=== PATIENT | male | born 1945 | race Caucasian/White ===

== ENCOUNTER 2017-01-01 10:40 | Outpatient (CLI) | payer MEDICARE, OTHER | END 2017-01-01 10:41 | DX: I50.9 Heart failure, unspecified (principal); I10 Essential (primary) hypertension; R60.0 Localized edema ==

== ENCOUNTER 2018-02-20 07:36 | Outpatient (CLI) | payer MEDICARE, OTHER ==
[2018-02-20 13:23] LABS: BASOPHILS % (AUTO) 0.9 %; EOSINOPHILS # (AUTO) 0.4 10^3/uL (0.0-0.7); EOSINOPHILS % (AUTO) 8.3 %; LYMPHOCYTES # (AUTO) 1.1 10^3/uL (1.5-3.5); LYMPHOCYTES % (AUTO) 21.9 %; MEAN CORPUSCULAR HEMOGLOBIN 29.4 pg (27.0-31.0); MEAN CORPUSCULAR HGB CONC 33.7 g/dL (32.0-36.0); MEAN CORPUSCULAR VOLUME 87.3 fL (80.0-94.0); MEAN PLATELET VOLUME 8.2 fL (7.4-11.4); MONOCYTES # (AUTO) 0.5 10^3/uL (0.0-1.0); MONOCYTES % (AUTO) 9.7 %; NEUTROPHILS # (AUTO) 2.9 10^3/uL (1.5-6.6); NEUTROPHILS % (AUTO) 59.2 %; PLT - PLATELET COUNT 199 10^3/uL (130-450); RED BLOOD COUNT 4.41 10^6/uL (4.70-6.10); RED CELL DISTRIBUTION WIDTH 13.9 % (12.0-15.0)
[2018-02-20 13:32] LABS: ALBUMIN/GLOBULIN RATIO 1.3 (1.0-2.2); ALKALINE PHOSPHATASE 58 IU/L (42-121); ALT ALANINE AMINOTRANSFERASE 20 IU/L (10-60); AST ASPARTATE AMINOTRANSFERASE 21 IU/L (10-42); BILIRUBIN,TOTAL 0.6 mg/dL (0.2-1.0); BUN - BLOOD UREA NITROGEN 22 mg/dL (6-20); CALCIUM 8.7 mg/dL (8.5-10.3); CARBON DIOXIDE - CO2 26 mmol/L (21-32); CHLORIDE 101 mmol/L (101-111); CHOL/HDL RATIO 5.5 (<5.0); CHOLESTEROL 226 mg/dL; CREATININE 1.2 mg/dL (0.6-1.2); GFR - MDRD 59 (>89); GLUCOSE 98 mg/dL (70-100); HDL CHOLESTEROL 41 mg/dL; LDL CHOLESTEROL,CALCULATED 154 mg/dL; LDL/HDL RATIO 3.8 (<3.6); SODIUM 135 mmol/L (135-145); VLDL CHOLESTEROL 31 mg/dL
== END 2018-02-20 07:37 | disposition home or self-care (01) ==
LOC: LAB.WCP 07:36
PROVIDERS: ATTEND Family Medicine
DX: E78.5 Hyperlipidemia, unspecified (principal); G47.30 Sleep apnea, unspecified; I10 Essential (primary) hypertension; C61 Malignant neoplasm of prostate
CPT/HCPCS: 36415; 80053; 80061; 83721; 84153; 84443; 85025

== ENCOUNTER 2019-02-15 14:08 | Outpatient (CLI) | payer MEDICARE, OTHER ==
--- NOTE | 2019-02-15 15:25 | XRAY Report ---
Reason: THUMB PAIN Procedure Date: 02/15/2019 Accession Number: [id number] / [id number] Procedure: XR - Hand 3 View LT CPT Code: FULL RESULT: EXAM: LEFT HAND RADIOGRAPHY EXAM DATE: 02/15/2019 02:22 PM. CLINICAL HISTORY: Thumb pain. COMPARISON: None. TECHNIQUE: 3 views. FINDINGS: Bones: Normal. No fractures or bone lesions. Joints: There is subluxation of the first metacarpophalangeal joint, approximately 3 mm of volar displacement of the distal thumb. Soft Tissues: Normal. No soft tissue swelling. IMPRESSION: Subluxation of the thumb as described. RADIA
== END 2019-02-15 14:09 | disposition home or self-care (01) ==
LOC: DI 14:08
PROVIDERS: ATTEND Internal Medicine
DX: S63.112A Subluxation of metacarpophalangeal joint of left thumb, initial encounter (principal)

== ENCOUNTER 2019-07-21 08:51 | Outpatient (CLI) | payer MEDICARE, OTHER ==
[2019-07-21 12:34] LABS: BASOPHILS % (AUTO) 0.9 %; EOSINOPHILS # (AUTO) 0.3 10^3/uL (0.0-0.7); EOSINOPHILS % (AUTO) 6.4 %; HGB - HEMOGLOBIN 14.2 g/dL (14.0-18.0); LYMPHOCYTES # (AUTO) 1.2 10^3/uL (1.5-3.5); LYMPHOCYTES % (AUTO) 28.7 %; MEAN CORPUSCULAR HEMOGLOBIN 30.9 pg (27.0-31.0); MEAN CORPUSCULAR VOLUME 91.1 fL (80.0-94.0); MEAN PLATELET VOLUME 10.3 fL (7.4-11.4); MONOCYTES # (AUTO) 0.5 10^3/uL (0.0-1.0); MONOCYTES % (AUTO) 11.6 %; NEUTROPHILS # (AUTO) 2.2 10^3/uL (1.5-6.6); NEUTROPHILS % (AUTO) 51.9 %; PLT - PLATELET COUNT 208 10^3/uL (130-450); RED BLOOD COUNT 4.59 10^6/uL (4.70-6.10); RED CELL DISTRIBUTION WIDTH 12.8 % (12.0-15.0); WHITE BLOOD COUNT 4.2 x10^3/uL (4.8-10.8)
[2019-07-21 12:36] LABS: BILIRUBIN,URINE NEGATIVE (NEGATIVE); GLUCOSE, URINE (UA) NEGATIVE (NEGATIVE); KETONES,URINE (UA) NEGATIVE (NEGATIVE); LEUKOCYTE ESTERASE, URINE NEGATIVE (NEGATIVE); NITRITE,URINE NEGATIVE (NEGATIVE); OCCULT BLOOD,URINE NEGATIVE (NEGATIVE); PH,URINE 6.5 PH (5.0-7.5); PROTEIN,URINE NEGATIVE (NEGATIVE); UROBILINOGEN,URINE 0.2 (NORMAL) E.U./dL (NORMAL)
[2019-07-21 12:44] LABS: CLARITY,URINE CLEAR (CLEAR)
[2019-07-21 12:57] LABS: HB2 TOTAL 14.8 g/dL; HEMOGLOBIN A1C 0.6 g/dL; HEMOGLOBIN A1C % 5.9 % (4.6-6.2)
[2019-07-21 13:02] LABS: ALBUMIN 3.9 g/dL (3.2-5.5); ALBUMIN/GLOBULIN RATIO 1.2 (1.0-2.2); ALKALINE PHOSPHATASE 55 IU/L (42-121); ALT ALANINE AMINOTRANSFERASE 19 IU/L (10-60); AST ASPARTATE AMINOTRANSFERASE 18 IU/L (10-42); BILIRUBIN,TOTAL 0.9 mg/dL (0.2-1.0); BUN - BLOOD UREA NITROGEN 22 mg/dL (6-20); CARBON DIOXIDE - CO2 28 mmol/L (21-32); CHLORIDE 104 mmol/L (101-111); CHOL/HDL RATIO 5.8 (<5.0); CHOLESTEROL 255 mg/dL; CREATININE 1.4 mg/dL (0.6-1.2); GFR - MDRD 49 (>89); GLUCOSE 101 mg/dL (70-100); HDL CHOLESTEROL 44 mg/dL; LDL CHOLESTEROL,CALCULATED 180 mg/dL; LDL/HDL RATIO 4.1 (<3.6); SODIUM 138 mmol/L (135-145); TOTAL PROTEIN 7.1 g/dL (6.7-8.2); VLDL CHOLESTEROL 31 mg/dL
[2019-07-21 13:06] LABS: THYROID STIMULATING HORMONE 2.22 uIU/mL (0.34-5.60)
== END 2019-07-21 23:59 | disposition home or self-care (01) ==
LOC: LAB.N 08:51
PROVIDERS: ATTEND Internal Medicine
DX: C61 Malignant neoplasm of prostate (principal); I10 Essential (primary) hypertension; R41.3 Other amnesia; Z86.010 Personal history of colon polyps; Z79.899 Other long term (current) drug therapy; Z13.6 Encounter for screening for cardiovascular disorders; J30.2 Other seasonal allergic rhinitis; G47.33 Obstructive sleep apnea (adult) (pediatric); G64 Other disorders of peripheral nervous system
CPT/HCPCS: 36415; 80053; 80061; 81001; 81003; 81599; 82607; 83036; 83721; 84153; 84443; 85025; 87086

== ENCOUNTER 2019-07-24 10:43 | Outpatient (CLI) | payer MEDICARE, OTHER ==
--- NOTE | 2019-07-25 04:52 | CT Report ---
Reason: MEMORY LOSS Procedure Date: 07/24/2019 Accession Number: [id number] / [id number] Procedure: CT - HEAD WO CPT Code: FULL RESULT: EXAM: CT HEAD EXAM DATE: 07/24/2019 10:55 AM. CLINICAL HISTORY: Memory loss. COMPARISON: None. TECHNIQUE: Multiaxial CT images were obtained from the foramen magnum to the vertex. Reformats: Sagittal and coronal. IV contrast: None. In accordance with CT protocol optimization, one or more of the following dose reduction techniques were utilized for this exam: automated exposure control, adjustment of mA and/or KV based on patient size, or use of iterative reconstructive technique. FINDINGS: Parenchyma: No intraparenchymal hemorrhage. No evidence of mass, midline shift, or CT findings of acute infarction. Hernandes-white differentiation is distinct. Extraaxial Spaces: Normal for age. No subdural or epidural collections identified. Ventricles: The ventricles and cortical sulci are moderately enlarged, consistent with age-related tissue loss. Sinuses and orbits: Postsurgical changes from cataract extractions are noted in the globes. Trace mucosal thickening is noted in the maxillary sinuses. The mastoid sinuses are not opacified. Bones: No evidence of fracture or calvarial defect. Other: Mild intracranial atherosclerosis is present. IMPRESSION: Generalized age-related cortical atrophic changes without evidence of acute intracranial abnormality. RADIA
== END 2019-07-24 10:44 | disposition home or self-care (01) ==
LOC: DI 10:43
PROVIDERS: ATTEND Internal Medicine
DX: R41.3 Other amnesia (principal)
CPT/HCPCS: 70450

== ENCOUNTER 2020-03-03 20:52 | Emergency (ER) | payer MEDICARE, OTHER ==
[2020-03-03] MEDS ORDERED: HYDROcod/ACET 5/325 Prepack 4 PO STA (21:32)
--- NOTE | 2020-03-03 21:44 | ED Physician Documentation ---
PD HPI LOWER EXT INJURY - Stated complaint Stated Complaint: LT KNEE INJ - Chief complaint Chief Complaint: Trauma Ext - History obtained from History obtained from: Patient (He was getting on his riding mower and twisted his right knee and has moderate to severe pain there. He is able to walk with a cane which is not his baseline.) Review of Systems Constitutional: reports: Reviewed and negative Cardiac: reports: Reviewed and negative Respiratory: reports: Reviewed and negative PD PAST MEDICAL HISTORY - Past Surgical History Past Surgical History: Yes - Present Medications Home Medications: Ambulatory Orders Medication Instructions Recorded Confirmed Lisinopril 20 mg PO 05/12/13 05/12/13 Hydrocodone/Acetaminophen 1 - 2 each PO Q6H PRN #14 tablet 03/03/20 [Hydrocodon-Acetaminophen 5-325] - Allergies Allergies/Adverse Reactions: Allergies Allergy/AdvReac Type Severity Reaction Status Date / Time No Known Drug Allergies Allergy Verified 03/03/20 21:00 - Social History Does the pt smoke?: No Smoking Status: Never smoker Does the pt drink ETOH?: No Does the pt have substance abuse?: No - Immunizations Immunizations are current?: Yes - POLST Patient has POLST: No PD ED PE NORMAL - Vitals Vital signs reviewed: Yes - General General: Alert and oriented X 3, No acute distress - Extremities Extremities: Other (Tender over the lateral joint line with a small effusion. No ligamentous laxity. Positive grind testing.) - Neuro Neuro: Alert and oriented X 3, Normal speech Results - Vitals Vitals: Vital Signs - 24 hr 03/03/20 20:57 Temperature 36.4 C L Heart Rate 70 Respiratory 16 Rate Blood Pressure 136/62 H O2 Saturation 97 Oxygen O2 Source Room air - Rads (name of study) R knee XR Radiology: EMP read contemporaneously (Normal ) Departure - Departure Disposition: 01 Home, Self Care Clinical Impression: Internal derangement of right knee Condition: Good Record reviewed to determine appropriate education?: Yes Instructions: ED Meniscal Injury Knee Poss Prescriptions: Hydrocodone/Acetaminophen [Hydrocodon-Acetaminophen 5-325] 1 - 2 each PO Q6H PRN #14 tablet PRN Reason: pain Comments: As discussed, your examination is most consistent with a skull injury. The x- rays are normal. You can walk and weight-bear weight as tolerated but you should wear the splint for the most part when you are up and around. Return if worsen, follow-up with the orthopedic surgeon for reevaluation and further planning in the next week or so. Do not drink or drive while taking prescription pain medication. You do not need to wear the splint while in bed or showering.
--- NOTE | 2020-03-03 21:52 | XRAY Report ---
Reason: twisted R knee, c/o pain. Procedure Date: 03/03/2020 Accession Number: [id number] / [id number] Procedure: XR - Knee 3 View RT CPT Code: Final Report FULL RESULT: EXAM: RIGHT KNEE RADIOGRAPHY EXAM DATE: 03/03/2020 09:21 PM. CLINICAL HISTORY: Twisted R knee, c/o pain. COMPARISON: None. TECHNIQUE: 3 views. FINDINGS: Bones: Normal. No fractures or bone lesions. Joints: Normal. No effusion. No subluxations. Soft Tissues: Normal. No soft tissue swelling. IMPRESSION: Normal right knee radiography. RADIA
[2020-03-03 22:07] VITALS: BP 142/66
== END 2020-03-03 22:10 | disposition home or self-care (01) ==
LOC: ED 20:52
DX: S89.91XA Unspecified injury of right lower leg, initial encounter (principal); X50.1XXA Overexertion from prolonged static or awkward postures, initial encounter; Y93.89 Activity, other specified
CPT/HCPCS: 99283

== ENCOUNTER → 2020-08-16 | Outpatient (CLI) | payer MEDICARE, OTHER ==
[2020-08-16 18:02] LABS: BASOPHILS % (AUTO) 0.6 %; EOSINOPHILS # (AUTO) 0.5 10^3/uL (0.0-0.7); EOSINOPHILS % (AUTO) 10.4 %; HGB - HEMOGLOBIN 13.1 g/dL (14.0-18.0); LYMPHOCYTES # (AUTO) 1.4 10^3/uL (1.5-3.5); LYMPHOCYTES % (AUTO) 30.5 %; MEAN CORPUSCULAR HEMOGLOBIN 30.4 pg (27.0-31.0); MEAN CORPUSCULAR HGB CONC 32.5 g/dL (32.0-36.0); MEAN CORPUSCULAR VOLUME 93.5 fL (80.0-94.0); MEAN PLATELET VOLUME 10.2 fL (7.4-11.4); MONOCYTES # (AUTO) 0.4 10^3/uL (0.0-1.0); MONOCYTES % (AUTO) 9.3 %; NEUTROPHILS # (AUTO) 2.3 10^3/uL (1.5-6.6); NEUTROPHILS % (AUTO) 48.8 %; PLT - PLATELET COUNT 234 10^3/uL (130-450); RED BLOOD COUNT 4.31 10^6/uL (4.70-6.10); RED CELL DISTRIBUTION WIDTH 12.9 % (12.0-15.0); WHITE BLOOD COUNT 4.6 x10^3/uL (4.8-10.8)
[2020-08-16 18:13] LABS: PARTIAL THROMBOPLASTIN TIME 27.1 secs (24.9-33.3)
[2020-08-16 18:22] LABS: CALCIUM 9.7 mg/dL (8.5-10.3); CREATININE 1.5 mg/dL (0.6-1.2)
[2020-08-16 18:25] LABS: INR 1.1 (0.8-1.2); PT - PROTHROMBIN TIME 12.4 secs (9.9-12.6)
== END ==
LOC: LAB.WCP 08:00
PROVIDERS: ATTEND Internal Medicine
DX: Z01.818 Encounter for other preprocedural examination (principal); N18.9 Chronic kidney disease, unspecified; Z79.899 Other long term (current) drug therapy; I12.9 Hypertensive chronic kidney disease with stage 1 through stage 4 chronic kidney disease, or unspecified chronic kidney disease
CPT/HCPCS: 36415; 80048; 85025; 85610; 85730

== ENCOUNTER 2021-05-18 08:52 | Outpatient (CLI) | payer MEDICARE, OTHER ==
[2021-05-18 11:51] LABS: BASOPHILS # (AUTO) 0.1 10^3/uL (0.0-0.1); BASOPHILS % (AUTO) 1.2 %; EOSINOPHILS # (AUTO) 0.3 10^3/uL (0.0-0.7); EOSINOPHILS % (AUTO) 5.8 %; HCT - HEMATOCRIT 40.1 % (42.0-52.0); HGB - HEMOGLOBIN 12.9 g/dL (14.0-18.0); LYMPHOCYTES % (AUTO) 22.8 %; MEAN CORPUSCULAR HEMOGLOBIN 30.3 pg (27.0-31.0); MEAN CORPUSCULAR HGB CONC 32.2 g/dL (32.0-36.0); MEAN CORPUSCULAR VOLUME 94.1 fL (80.0-94.0); MEAN PLATELET VOLUME 10.5 fL (7.4-11.4); MONOCYTES # (AUTO) 0.5 10^3/uL (0.0-1.0); MONOCYTES % (AUTO) 11.4 %; NEUTROPHILS # (AUTO) 2.5 10^3/uL (1.5-6.6); NEUTROPHILS % (AUTO) 58.6 %; PLT - PLATELET COUNT 201 10^3/uL (130-450); RED BLOOD COUNT 4.26 10^6/uL (4.70-6.10); RED CELL DISTRIBUTION WIDTH 13.5 % (12.0-15.0); WHITE BLOOD COUNT 4.3 x10^3/uL (4.8-10.8)
[2021-05-18 11:58] LABS: ALBUMIN/GLOBULIN RATIO 1.4 (1.0-2.2); ALKALINE PHOSPHATASE 68 IU/L (42-121); ALT ALANINE AMINOTRANSFERASE 17 IU/L (10-60); AST ASPARTATE AMINOTRANSFERASE 17 IU/L (10-42); BILIRUBIN,TOTAL 0.8 mg/dL (0.2-1.0); BUN - BLOOD UREA NITROGEN 24 mg/dL (6-20); CALCIUM 9.3 mg/dL (8.5-10.3); CARBON DIOXIDE - CO2 27 mmol/L (21-32); CHLORIDE 104 mmol/L (101-111); CHOL/HDL RATIO 4.8 (<5.0); CHOLESTEROL 232 mg/dL; CREATININE 1.1 mg/dL (0.6-1.2); GFR - MDRD 65 (>89); GLUCOSE 99 mg/dL (70-100); HDL CHOLESTEROL 48 mg/dL; LDL CHOLESTEROL,CALCULATED 162 mg/dL; LDL/HDL RATIO 3.4 (<3.6); POTASSIUM 3.9 mmol/L (3.5-5.0); SODIUM 141 mmol/L (135-145); TOTAL PROTEIN 6.9 g/dL (6.7-8.2); TRIGLYCERIDES 111 mg/dL; VLDL CHOLESTEROL 22 mg/dL
[2021-05-18 12:09] LABS: THYROID STIMULATING HORMONE 2.56 uIU/mL (0.34-5.60)
[2021-05-18 12:28] LABS: ESTIMATED AVERAGE GLUCOSE 120 mg/dL (70-100); HEMOGLOBIN A1c% 5.8 % (4.27-6.07)
== END 2021-05-18 08:53 | disposition home or self-care (01) ==
LOC: LAB.N 08:52
PROVIDERS: ATTEND Internal Medicine
DX: R73.01 Impaired fasting glucose (principal); Z13.6 Encounter for screening for cardiovascular disorders; Z79.899 Other long term (current) drug therapy; J30.2 Other seasonal allergic rhinitis; G47.33 Obstructive sleep apnea (adult) (pediatric); I12.9 Hypertensive chronic kidney disease with stage 1 through stage 4 chronic kidney disease, or unspecified chronic kidney disease; K62.5 Hemorrhage of anus and rectum; N18.9 Chronic kidney disease, unspecified; G64 Other disorders of peripheral nervous system; D64.9 Anemia, unspecified; C61 Malignant neoplasm of prostate
CPT/HCPCS: 36415; 80053; 80061; 82607; 83036; 83721; 84153; 84443; 85025

== ENCOUNTER 2021-08-18 19:38 | Emergency (ER) | payer MEDICARE, OTHER ==
[2021-08-18 19:55] LABS: BILIRUBIN,URINE NEGATIVE (NEGATIVE); GLUCOSE, URINE (UA) NEGATIVE (NEGATIVE); KETONES,URINE (UA) NEGATIVE (NEGATIVE); LEUKOCYTE ESTERASE, URINE LARGE (NEGATIVE); NITRITE,URINE POSITIVE (NEGATIVE); OCCULT BLOOD,URINE LARGE (NEGATIVE); PH,URINE 5.5 PH (5.0-7.5); PROTEIN,URINE 100 mg/dL (NEGATIVE); UROBILINOGEN,URINE 0.2 (NORMAL) E.U./dL (NORMAL)
[2021-08-18 19:59] LABS: CLARITY,URINE CLOUDY (CLEAR)
[2021-08-18 19:59] LABS: BASOPHILS % (AUTO) 0.4 %; EOSINOPHILS # (AUTO) 0.3 10^3/uL (0.0-0.7); EOSINOPHILS % (AUTO) 3.2 %; HCT - HEMATOCRIT 40.6 % (42.0-52.0); HGB - HEMOGLOBIN 13.7 g/dL (14.0-18.0); LYMPHOCYTES # (AUTO) 1.3 10^3/uL (1.5-3.5); LYMPHOCYTES % (AUTO) 14.1 %; MEAN CORPUSCULAR HEMOGLOBIN 30.8 pg (27.0-31.0); MEAN CORPUSCULAR HGB CONC 33.7 g/dL (32.0-36.0); MEAN CORPUSCULAR VOLUME 91.2 fL (80.0-94.0); MEAN PLATELET VOLUME 9.6 fL (7.4-11.4); MONOCYTES # (AUTO) 0.9 10^3/uL (0.0-1.0); MONOCYTES % (AUTO) 9.8 %; NEUTROPHILS # (AUTO) 6.8 10^3/uL (1.5-6.6); NEUTROPHILS % (AUTO) 72.2 %; PLT - PLATELET COUNT 212 10^3/uL (130-450); RED BLOOD COUNT 4.45 10^6/uL (4.70-6.10); RED CELL DISTRIBUTION WIDTH 12.9 % (12.0-15.0); WHITE BLOOD COUNT 9.4 x10^3/uL (4.8-10.8)
[2021-08-18 20:04] LABS: BACTERIA,URINE Moderate /HPF (None Seen); SQUAMOUS EPITHELIAL CELL,UR RARE Squamous (<= Few); WBC,URINE >25 /HPF (0-3)
[2021-08-18 20:08] LABS: CALCIUM 9.2 mg/dL (8.5-10.3); CREATININE 1.3 mg/dL (0.6-1.2); POTASSIUM 3.9 mmol/L (3.5-5.0)
[2021-08-18] MEDS ORDERED: PHENAZOPYRIDINE 100 MG TABLET PO STA (20:38)
[2021-08-18] MEDS ORDERED: CEFPODOXIME PROXETIL 100 MG TABLET PO STA ×2 (20:38→20:40)
--- NOTE | 2021-08-18 20:38 | ED Physician Documentation ---
History of Present Illness - Stated complaint Stated Complaint: MALE - Chief complaint Chief Complaint: UTI - History obtained from History obtained from: Patient - Additonal information Additional information: 76-year-old man presents with dysuria and increased urinary urgency since yesterday. Denies back pain, fever, abdominal pain. no prior hx uti Review of Systems Ten Systems: 10 systems reviewed and negative Constitutional: denies: Fever, Chills GI: denies: Abdominal Pain, Nausea : reports: Dysuria, Frequency Musculoskeletal: denies: Back pain PD PAST MEDICAL HISTORY - Past Surgical History Past Surgical History: Yes - Present Medications Home Medications: Ambulatory Orders Medication Instructions Recorded Confirmed Cefpodoxime Proxetil [Vantin] 200 mg PO Q12H #28 tablet 08/18/21 Cholecalciferol [Vitamin D3] 1 cap PO DAILY 08/18/21 08/18/21 Cyanocobalamin (Vitamin B-12) 1 tab PO DAILY 08/18/21 08/18/21 [Vitamin B12] Gabapentin [Neurontin] 1,800 mg PO DAILY 08/18/21 08/18/21 Latanoprost 0.005% Ophth Drops 1 drops EACHEYE DAILY 08/18/21 08/18/21 [Xalatan Ophth Drops] Lisinopril [Zestril] 10 mg PO DAILY 08/18/21 08/18/21 Timolol 0.5% Ophth Drops [Timoptic 1 drops EACHEYE DAILY 08/18/21 08/18/21 0.5% Ophth Drops] - Allergies Allergies/Adverse Reactions: Allergies Allergy/AdvReac Type Severity Reaction Status Date / Time No Known Drug Allergies Allergy Verified 08/18/21 19:40 - Social History Does the pt smoke?: No Smoking Status: Never smoker Does the pt drink ETOH?: No Does the pt have substance abuse?: No - Immunizations Immunizations are current?: Yes - POLST Patient has POLST: No PD ED PE NORMAL - Vitals Vital signs reviewed: Yes - General General: Alert and oriented X 3, No acute distress, Well developed/nourished - HEENT HEENT: Atraumatic, PERRL, EOMI - Neck Neck: Supple, no meningeal sign - Cardiac Cardiac: RRR - Respiratory Respiratory: No respiratory distress, Clear bilaterally - Abdomen Abdomen: Non tender, Non distended - Back Back: No CVA TTP - Derm Derm: Normal color, Warm and dry - Extremities Extremities: No deformity - Neuro Neuro: Alert and oriented X 3 - Psych Psych: Normal mood, Normal affect Results - Vitals Vitals: Oxygen O2 Source Room air - Labs Labs: Microbiology 08/18/21 19:50 Urine Culture - Preliminary Urine,Clean Catch Escherichia Coli Laboratory Tests 08/18/21 08/18/21 08/18/21 19:50 19:54 19:54 WBC 9.4 RBC 4.45 L Hgb 13.7 L Hct 40.6 L MCV 91.2 MCH 30.8 MCHC 33.7 RDW 12.9 Plt Count 212 MPV 9.6 Neut # (Auto) 6.8 H Lymph # (Auto) 1.3 L Swain # (Auto) 0.9 Eos # (Auto) 0.3 Baso # (Auto) 0.0 Absolute Nucleated RBC 0.00 Nucleated RBC % 0.0 Sodium 139 Potassium 3.9 Chloride 104 Carbon Dioxide 24 Anion Gap 11.0 BUN 18 Creatinine 1.3 H Estimated GFR (MDRD) 54 L Glucose 125 H Calcium 9.2 Urine Color YELLOW Urine Clarity CLOUDY Urine pH 5.5 Ur Specific [place] 1.020 Urine Protein 100 H Urine Glucose (UA) NEGATIVE Urine Ketones NEGATIVE Urine Occult Blood LARGE H Urine Nitrite POSITIVE H Urine Bilirubin NEGATIVE Urine Urobilinogen 0.2 (NORMAL) Ur Leukocyte Esterase LARGE H Urine RBC 11-25 H Urine WBC >25 H Ur Squamous Epith Cells RARE Squamous Urine Bacteria Moderate H Ur Microscopic Review INDICATED Urine Culture Comments INDICATED PD MEDICAL DECISION MAKING - ED course ED course: 76yM p/w uti without evidence of stones on CT. advised him to fu with pmd regarding pulmonary nodules and need for chest CT. return precautions given. patient will .fu urology. Departure - Departure Disposition: Home, Self Care Clinical Impression: UTI (urinary tract infection) Condition: Good Instructions: ED UTI Cystitis Male Follow-Up: Penelope Mcpherson MD [Physician No Access] - Prescriptions: Cefpodoxime Proxetil [Vantin] 200 mg PO Q12H #28 tablet Comments: You are seen in the emergency department for urinary tract infection. You do not have any evidence of kidney stones on your CT. You do have a couple of nodules in the right base of your lung that should be followed up by your primary doctor. You will need a follow-up outpatient chest CT as ordered by your doctor. Please take your antibiotics as prescribed and follow-up with urology. Return to the emergency department if you have any fevers, new or worsening symptoms or other concerns. Discharge Date/Time: 08/18/21 21:48
--- NOTE | 2021-08-18 21:11 | CT Report ---
PROCEDURE: Abdomen/Pelvis WO INDICATIONS: R flank pain, uti, hematuria TECHNIQUE: Noncontrast 5 mm thick sections acquired from the diaphragms to the symphysis. 5 mm coronal and sagi ttal reformats were then performed. For radiation dose reduction, the following was used: automated exposure control, adjustment of mA and/or kV according to patient size. COMPARISON: None. FINDINGS: Image quality: Excellent. ABDOMEN: Lung bases: 4 mm oval nodule is seen in lateral aspect of right lower lobe series 4 image 1. 5 mm randall id nodule is seen in posterior lateral aspect of right lower lobe series 4 image 7. 4 mm nodule is al so noted at posterior right lung base series 4 image 34. Bibasilar scattered scarring/atelectasis is seen. Heart size is normal. Solid organs: Liver and spleen are normal in size. Gallbladder is contracted and shows no gross abn ormality. Pancreas is normal in contours. No adrenal nodules. Kidneys are normal in size, without hydronephrosis or nephrolithiasis. Peritoneum and bowel: Unenhanced bowel loops demonstrate normal wall thickness and caliber. No free fluid or air. Extensive sigmoid diverticulosis is seen, no CT evidence of acute diverticulitis. Oliverio endix is visualized and is within normal limits. Nodes and vessels: No retroperitoneal or mesenteric adenopathy by size criteria. Aorta and inferior vena cava are normal in caliber. Miscellaneous: No ventral hernias. PELVIS: Genitourinary: Mild diffuse bladder wall thickening is seen. No discrete bladder wall mass. Miscellaneous: No inguinal hernias or adenopathy. Bones: No suspicious bony lesions. No vertebral body compression fractures. Post right transpedicu lar fusion in lower lumbar spine at L4-S1 levels are seen. Grade 1 anterolisthesis of L4 on L5 and L5 on S1 is seen. Degenerative endplate changes throughout lumbar spine is noted. IMPRESSION: 1. No renal stone or hydronephrosis. No hydroureter. Mild diffuse bladder wall thickening, low-grade cystitis cannot be excluded. No discrete bladder wall mass. 2. No bowel obstruction or abnormal bowel wall thickening. Normal appendix. Colonic diverticulosis wi thout evidence of acute diverticulitis. No free fluid of free air. 3. Incidentally noted are 3 tiny nodule seen in visualized right lower lobe and may represent benign nodules. Nonurgent CT chest follow-up is recommended. 4. Postsurgical changes in lower lumbar spine as above. No acute vertebral body compression fracture. Reviewed by: Luis Angel Blood MD on 08/18/2021 9:09 PM PDT Approved by: Luis Angel Blood MD on 08/18/2021 9:09 PM PDT Station ID: [id number]
[2021-08-18 21:54] VITALS: BP 145/55
== END 2021-08-18 21:48 | disposition home or self-care (01) ==
LOC: ED 19:38
DX: N39.0 Urinary tract infection, site not specified (principal); R91.8 Other nonspecific abnormal finding of lung field
CPT/HCPCS: 36415; 74176; 80048; 81001; 85025; 87086; 87181; 99283; 99284; A9270; 81003

== ENCOUNTER 2021-08-30 11:42 | Outpatient (CLI) | payer MEDICARE, OTHER ==
--- NOTE | 2021-08-30 16:16 | CT Report ---
PROCEDURE: CHEST WO INDICATIONS: PULMONARY NODULE TECHNIQUE: Noncontrast 1mm axial images were acquired from the pulmonary apices to the posterior costophrenic an gles. Axial 5 mm soft tissue kernel reconstructions were performed as well as 8 mm axial MIP and cor onal and sagittal 5 mm reformations. For radiation dose reduction, the following was used: automate d exposure control, adjustment of mA and/or kV according to patient size. COMPARISON: CT abdomen and pelvis dated 08/18/2021 FINDINGS: Image quality: Excellent. Lungs and pleura: Multiple pulmonary nodules are as follows: Nodule seen on recent previous CT abdomen and pelvis Nodule 1: Inner basal segment right lower lobe, current image 153/4, 4 mm. Nodule 2:5 mm pulmonary nodule, right lower lobe, image 173/4. Nodule 3:2 mm nodule, extreme right lung base, image 258/4. Additional pulmonary nodules: Nodule 4: Pleural-based right lower lobe along major fissure, 5 mm, current image 150/4: Nodule 5: Fissural nodule, left lung, approximately 2 mm, current image 165/4. No acute air space opa cities. No pleural effusions or pneumothorax. Central and peripheral airways are patent and normal in caliber. Mediastinum: Heart size is normal. No pericardial effusion. Moderate coronary artery calcifications . No mediastinal adenopathy by size criteria. Thoracic aorta and central pulmonary arteries are norm al in size. Esophagus is normal in caliber. No hiatal hernia. Bones and chest wall: No suspicious bony lesions. Thoracic and lumbar degenerative change. Multiple chronic contiguous thoracic vertebral body compressions result in mild increase in thoracic kyphosis. No axillary or supraclavicular adenopathy by size criteria. The thyroid is normal in size and there are no incidental findings. Abdomen: Visualized upper abdominal solid organs and bowel are unremarkable IMPRESSION: 1. Multiple small pulmonary nodules as described above, of uncertain etiology. 2. Coronary artery disease. 3. Multiple old compression fractures. Comment: As per the Fleischner Society criteria,If the patient is at low risk for lung cancer follow up CT at 12 months, if unchanged, no further follow up needed. If the patient has risk factors for marcia ng cancer, follow up chest CT at 6- 12 months, then at 18-24 months if no change. Additional comment: Consider DEXA bone densitometry to evaluate possible severity of osteoporosis. CLINICAL RECOMMENDATION STATEMENTS: In patients <35 years with an ITN detected on CT, MRI, or extrathyroidal ultrasound, the Committee re commends further evaluation with dedicated thyroid ultrasound if the nodule is "e1 cm and has no susp icious imaging features, and if the patient has normal life expectancy. In patients "e35 years with an ITN detected on CT, MRI, or extrathyroidal ultrasound, the Committee r ecommends further evaluation with dedicated thyroid ultrasound if the nodule is "e1.5 cm and has no s uspicious imaging features, and if the patient has normal life expectancy. (ACR, 2014) Reviewed by: Godwin Johnson MD on 08/30/2021 4:14 PM PDT Approved by: Godwin Johnson MD on 08/30/2021 4:14 PM PDT Station ID: [id number]
== END 2021-08-30 11:43 | disposition home or self-care (01) ==
LOC: DI 11:42
PROVIDERS: ATTEND Internal Medicine
DX: R91.8 Other nonspecific abnormal finding of lung field (principal); I25.10 Atherosclerotic heart disease of native coronary artery without angina pectoris; M48.54XA Collapsed vertebra, not elsewhere classified, thoracic region, initial encounter for fracture; M48.56XA Collapsed vertebra, not elsewhere classified, lumbar region, initial encounter for fracture

== ENCOUNTER 2021-09-13 08:00 | Outpatient (CLI) | payer MEDICARE, OTHER ==
[2021-09-13 15:58] LABS: BILIRUBIN,URINE NEGATIVE (NEGATIVE); GLUCOSE, URINE (UA) NEGATIVE (NEGATIVE); KETONES,URINE (UA) NEGATIVE (NEGATIVE); LEUKOCYTE ESTERASE, URINE MODERATE (NEGATIVE); NITRITE,URINE NEGATIVE (NEGATIVE); OCCULT BLOOD,URINE TRACE-INTA (NEGATIVE); PROTEIN,URINE NEGATIVE (NEGATIVE); UROBILINOGEN,URINE 0.2 (NORMAL) E.U./dL (NORMAL)
[2021-09-13 16:05] LABS: CLARITY,URINE CLEAR (CLEAR)
[2021-09-13 16:16] LABS: BACTERIA,URINE Many /HPF (None Seen); SQUAMOUS EPITHELIAL CELL,UR NONE SEEN (<= Few); WBC,URINE >25 /HPF (0-3)
== END 2021-09-13 23:59 | disposition home or self-care (01) ==
LOC: LAB.R 08:00
PROVIDERS: ATTEND Internal Medicine
DX: N18.9 Chronic kidney disease, unspecified (principal); N39.0 Urinary tract infection, site not specified
CPT/HCPCS: 81001; 81003; 87086; 87181

== ENCOUNTER 2022-03-19 13:56 | Outpatient (CLI) | payer MEDICARE, OTHER ==
--- NOTE | 2022-03-19 15:12 | XRAY Report ---
PROCEDURE: Chest 2 View X-Ray INDICATIONS: COUGH TECHNIQUE: 2 view(s) of the chest. COMPARISON: CT of chest dated 08/30/2021. FINDINGS: Surgical changes and devices: None. Lungs and pleura: No pleural effusions or pneumothorax. Lungs are clear. Mediastinum: Mediastinal contours are normal. Heart size is normal. Bones and chest wall: No suspicious bony abnormalities. Soft tissues appear unremarkable. IMPRESSION: No acute cardiopulmonary pathology. Reviewed by: Luis Angel Blood MD on 03/19/2022 3:11 PM PDT Approved by: Luis Angel Blood MD on 03/19/2022 3:11 PM PDT Station ID: [id number]
== END 2022-03-19 13:57 | disposition home or self-care (01) ==
LOC: DI 13:56
PROVIDERS: ATTEND Internal Medicine
DX: R05.9 Cough, unspecified (principal)

== ENCOUNTER 2022-04-24 12:31 | Outpatient (CLI) | payer MEDICARE, OTHER ==
[2022-04-24 17:43] LABS: CALCIUM 9.8 mg/dL (8.5-10.3); CREATININE 1.2 mg/dL (0.6-1.2); MAGNESIUM 2.1 mg/dL (1.7-2.8); POTASSIUM 4.3 mmol/L (3.5-5.0)
== END 2022-04-24 12:32 | disposition home or self-care (01) ==
LOC: LAB.N 12:31
PROVIDERS: ATTEND Internal Medicine
DX: M79.10 Myalgia, unspecified site (principal)
CPT/HCPCS: 36415; 80048; 82550; 83735

== ENCOUNTER 2022-08-13 10:48 | Outpatient (CLI) | payer MEDICARE, OTHER ==
--- NOTE | 2022-08-13 15:20 | CT Report ---
PROCEDURE: CHEST WO INDICATIONS: CHRONIC COUGH, PULMONARY NODULE TECHNIQUE: Noncontrast 1mm axial images were acquired from the pulmonary apices to the posterior costophrenic an gles. Axial 5 mm soft tissue kernel reconstructions were performed as well as 8 mm axial MIP and cor onal and sagittal 5 mm reformations. For radiation dose reduction, the following was used: automate d exposure control, adjustment of mA and/or kV according to patient size. COMPARISON: CT chest 07/30/2021. FINDINGS: Image quality: Excellent. Lungs and pleura: No new or enlarging pulmonary nodules. Several stable small pulmonary nodules. For example: -Right major fissure 0.5 cm, (4/146). -Right lower lobe 0.6 cm, (4/164). -Left lower lobe subpleural 0.4 cm, (4/194). No acute air space opacities. No pleural effusions or pneumothorax. Central and peripheral airways are patent and normal in caliber. Mediastinum: Heart size is normal. Moderate coronary artery calcifications. No pericardial effusion . No mediastinal adenopathy by size criteria. Thoracic aorta and central pulmonary arteries are nor mal in size. Esophagus is normal in caliber. No hiatal hernia. Bones and chest wall: No suspicious bony lesions. T9 compression fracture is unchanged. No axillary or supraclavicular adenopathy by size criteria. The thyroid is normal in size and there are no inci dental findings. Gynecomastia. Abdomen: Visualized upper abdominal solid organs and bowel loops appear normal in the absence of con trast. Diverticulosis. IMPRESSION: 1. No acute airspace opacity. 2. No new or enlarging pulmonary nodules. A few small pulmonary nodules are unchanged. Largest at the right lower lobe measuring 0.6 cm. -Recommend follow-up CT chest in one year to demonstrate long-term stability. Reviewed by: Balaji Casey MD on 08/13/2022 3:18 PM PDT Approved by: Balaji Casey MD on 08/13/2022 3:18 PM PDT Station ID: [id number]
== END 2022-08-13 10:49 | disposition home or self-care (01) ==
LOC: DI 10:48
PROVIDERS: ATTEND Internal Medicine
DX: R91.8 Other nonspecific abnormal finding of lung field (principal)

== ENCOUNTER 2022-08-21 12:54 | Outpatient (CLI) | payer MEDICARE, OTHER ==
[2022-08-21 18:03] LABS: BASOPHILS # (AUTO) 0.1 10^3/uL (0.0-0.1); EOSINOPHILS # (AUTO) 0.2 10^3/uL (0.0-0.7); EOSINOPHILS % (AUTO) 4.7 %; HCT - HEMATOCRIT 40.7 % (42.0-52.0); HGB - HEMOGLOBIN 13.8 g/dL (14.0-18.0); LYMPHOCYTES # (AUTO) 1.4 10^3/uL (1.5-3.5); LYMPHOCYTES % (AUTO) 28.2 %; MEAN CORPUSCULAR HEMOGLOBIN 30.5 pg (27.0-31.0); MEAN CORPUSCULAR HGB CONC 33.9 g/dL (32.0-36.0); MEAN PLATELET VOLUME 10.2 fL (7.4-11.4); MONOCYTES # (AUTO) 0.5 10^3/uL (0.0-1.0); MONOCYTES % (AUTO) 10.7 %; NEUTROPHILS # (AUTO) 2.8 10^3/uL (1.5-6.6); NEUTROPHILS % (AUTO) 55.2 %; PLT - PLATELET COUNT 232 10^3/uL (130-450); RED BLOOD COUNT 4.52 10^6/uL (4.70-6.10); RED CELL DISTRIBUTION WIDTH 12.9 % (12.0-15.0); WHITE BLOOD COUNT 5.1 x10^3/uL (4.8-10.8)
[2022-08-21 18:29] LABS: % IRON SATURATION 37 % (20-50); ALBUMIN 4.2 g/dL (3.2-5.5); ALBUMIN/GLOBULIN RATIO 1.2 (1.0-2.2); ALKALINE PHOSPHATASE 71 IU/L (42-121); ALT ALANINE AMINOTRANSFERASE 21 IU/L (10-60); AST ASPARTATE AMINOTRANSFERASE 23 IU/L (10-42); BILIRUBIN,TOTAL 0.8 mg/dL (0.2-1.0); BUN - BLOOD UREA NITROGEN 19 mg/dL (6-20); CALCIUM 9.5 mg/dL (8.5-10.3); CARBON DIOXIDE - CO2 26 mmol/L (21-32); CHLORIDE 101 mmol/L (101-111); CHOL/HDL RATIO 5.7 (<5.0); CHOLESTEROL 243 mg/dL; CREATININE 1.2 mg/dL (0.6-1.2); GFR - MDRD 59 (>89); GLUCOSE 91 mg/dL (70-100); HDL CHOLESTEROL 43 mg/dL; IRON 114 ug/dL (45-182); LDL CHOLESTEROL,CALCULATED 177 mg/dL; LDL/HDL RATIO 4.1 (<3.6); SODIUM 137 mmol/L (135-145); TOTAL IRON BINDING CAPACITY 312 ug/dL (250-450); TOTAL PROTEIN 7.6 g/dL (6.7-8.2); TRANSFERRIN 223 mg/dL (180-329); TRIGLYCERIDES 116 mg/dL; VLDL CHOLESTEROL 23 mg/dL
[2022-08-21 18:35] LABS: THYROID STIMULATING HORMONE 2.69 uIU/mL (0.34-5.60)
[2022-08-21 18:36] LABS: PSA TOTAL 0.091 ng/mL (0.000-2.000)
[2022-08-21 18:41] LABS: FERRITIN 110.4 ng/mL (23.9-336.2)
[2022-08-21 20:11] LABS: ESTIMATED AVERAGE GLUCOSE 123 mg/dL (70-100); HEMOGLOBIN A1c% 5.9 % (4.27-6.07)
== END 2022-08-21 12:55 | disposition home or self-care (01) ==
LOC: LAB.N 12:54
PROVIDERS: ATTEND Internal Medicine
DX: Z00.00 Encounter for general adult medical examination without abnormal findings (principal); D64.9 Anemia, unspecified; I12.9 Hypertensive chronic kidney disease with stage 1 through stage 4 chronic kidney disease, or unspecified chronic kidney disease; N18.9 Chronic kidney disease, unspecified; Z86.010 Personal history of colon polyps; R73.01 Impaired fasting glucose; G47.33 Obstructive sleep apnea (adult) (pediatric); G62.9 Polyneuropathy, unspecified; C61 Malignant neoplasm of prostate; J30.2 Other seasonal allergic rhinitis; N39.0 Urinary tract infection, site not specified
CPT/HCPCS: 36415; 80053; 80061; 82607; 82728; 82746; 83036; 83540; 83721; 84153; 84443; 84466; 85025

== ENCOUNTER 2023-08-18 17:04 | Outpatient (CLI) | payer MEDICARE, OTHER ==
[2023-08-18 18:01] LABS: CREATININE 1.3 mg/dL (0.6-1.3)
== END 2023-08-18 17:05 | disposition home or self-care (01) ==
LOC: LAB 17:04
PROVIDERS: ATTEND Internal Medicine
DX: Z79.899 Other long term (current) drug therapy (principal)
CPT/HCPCS: 36415; 82565

== ENCOUNTER 2023-08-18 17:09 | Outpatient (CLI) | payer MEDICARE, OTHER ==
[2023-08-18] MEDS ORDERED: DIATR MEGLU/DIATRIZOATE SODIUM 120 ML BOTTLE ONE (18:05)
--- NOTE | 2023-08-18 21:22 | CT Report ---
PROCEDURE: ABDOMEN/PELVIS W INDICATIONS: TENDERNESS R LQ OF ABDOMEN CONTRAST: 100mL Omni 300 TECHNIQUE: After the administration of oral and intravenous contrast, 5 mm thick sections acquired from the diap hragms to the symphysis. 5 mm thick coronal and sagittal reformats were acquired. For radiation dos e reduction, the following was used: automated exposure control, adjustment of mA and/or kV accordin g to patient size. COMPARISON: 08/18/2021, chest CT 08/13/2022 FINDINGS: Image quality: Excellent. Lung bases and heart: Small stable nodules at both lung bases, most likely postinfectious or inflamma tory. The heart is normal size. Mild coronary artery calcification. Liver: Mild diffuse hypodensity without mass. Gallbladder and biliary tree: No calcifications. Nondilated biliary tree. Spleen: No splenomegaly. Pancreas: Diffuse punctate calcifications. No ductal dilatation. Normal size and contour. Adrenals: No adrenal nodule. Kidneys and ureters: Symmetric enhancement. No hydronephrosis or nephrolithiasis. No solid mass or cy st requiring follow-up. Mild right hydroureter in the mid to distal portion. No ureteral calcificatio ns visible. Bowel and peritoneum: Stomach and small bowel are normal. No occasional diverticula in the proximal c olon. Moderate diverticulosis in the descending and sigmoid colon. No pericolonic inflammation. The a ppendix appears normal. Lymph nodes: No central or retroperitoneal adenopathy. Vessels: No infrarenal aortic aneurysm. PELVIS Reproductive organs: The prostate gland is absent or diminutive. Bladder: No abnormal wall thickening, accounting for underdistension. No visible bladder calcificatio ns. Pelvic lymph nodes: No pelvic adenopathy by size criteria. Bones: No suspicious bone lesions. Severe degenerative changes in the thoracolumbar spine. Disc space rs at L4-5 and L5-S1. Severe facet joint changes. Posterior fixation hardware on the right from L4 th rough S1. Other: No significant ventral or inguinal hernia. IMPRESSION: 1. Mid to distal right hydroureter without urinary calcification visible. This may indicate a recentl y passed stone, or nonradiodense obstruction such as stone, clot, or soft tissue. No significant righ t hydronephrosis at this point. 2. Normal appendix. 3. Colonic diverticulosis without acute diverticulitis. 4. Findings of remote pancreatitis. 5. Mild hepatic steatosis. 6. Stable bilateral lung nodules, benign. Reviewed by: Celestina Maher MD on 08/18/2023 9:20 PM PDT Approved by: Celestina Maher MD on 08/18/2023 9:20 PM PDT Station ID: [id number]
[2023-08-19] MEDS ORDERED: iohexoL-300 100 ML VIAL IVP ONE (01:44)
== END 2023-08-18 17:10 | disposition home or self-care (01) ==
LOC: DI 17:09
PROVIDERS: ATTEND Internal Medicine
DX: R10.9 Unspecified abdominal pain (principal); R10.813 Right lower quadrant abdominal tenderness; Z79.899 Other long term (current) drug therapy; N13.4 Hydroureter; K57.30 Diverticulosis of large intestine without perforation or abscess without bleeding; K76.0 Fatty (change of) liver, not elsewhere classified; R91.8 Other nonspecific abnormal finding of lung field; K86.89 Other specified diseases of pancreas
CPT/HCPCS: 36415; 74177; 82565; Q9963

== ENCOUNTER 2023-10-01 07:46 | Outpatient (CLI) | payer MEDICARE, OTHER ==
[2023-10-01 12:03] LABS: BASOPHILS % (AUTO) 0.8 %; EOSINOPHILS # (AUTO) 0.3 10^3/uL (0.0-0.7); EOSINOPHILS % (AUTO) 5.9 %; HCT - HEMATOCRIT 40.2 % (42.0-52.0); HGB - HEMOGLOBIN 13.3 g/dL (14.0-18.0); LYMPHOCYTES # (AUTO) 1.4 10^3/uL (1.5-3.5); MEAN CORPUSCULAR HEMOGLOBIN 30.6 pg (27.0-31.0); MEAN CORPUSCULAR HGB CONC 33.1 g/dL (32.0-36.0); MEAN CORPUSCULAR VOLUME 92.4 fL (80.0-94.0); MEAN PLATELET VOLUME 10.1 fL (7.4-11.4); MONOCYTES # (AUTO) 0.4 10^3/uL (0.0-1.0); MONOCYTES % (AUTO) 8.4 %; NEUTROPHILS % (AUTO) 57.3 %; PLT - PLATELET COUNT 231 10^3/uL (130-450); RED BLOOD COUNT 4.35 10^6/uL (4.70-6.10); RED CELL DISTRIBUTION WIDTH 12.9 % (12.0-15.0); WHITE BLOOD COUNT 5.3 x10^3/uL (4.8-10.8)
[2023-10-01 12:09] LABS: ESTIMATED AVERAGE GLUCOSE 123 mg/dL (70-100); HEMOGLOBIN A1c% 5.9 % (4.27-6.07)
[2023-10-01 12:28] LABS: ALBUMIN 4.2 g/dL (3.2-5.5); ALBUMIN/GLOBULIN RATIO 1.4 (1.0-2.2); ALKALINE PHOSPHATASE 76 IU/L (42-121); ALT ALANINE AMINOTRANSFERASE 15 IU/L (10-60); AST ASPARTATE AMINOTRANSFERASE 15 IU/L (10-42); BILIRUBIN,TOTAL 0.5 mg/dL (0.2-1.0); BUN - BLOOD UREA NITROGEN 24 mg/dL (6-20); CALCIUM 9.5 mg/dL (8.5-10.3); CARBON DIOXIDE - CO2 26 mmol/L (21-32); CHLORIDE 107 mmol/L (101-111); CHOL/HDL RATIO 5.5 (<5.0); CHOLESTEROL 209 mg/dL; CREATININE 1.1 mg/dL (0.6-1.3); GFR - MDRD 65 (>89); GLUCOSE 103 mg/dL (74-104); HDL CHOLESTEROL 38 mg/dL; LDL CHOLESTEROL,CALCULATED 135 mg/dL; LDL/HDL RATIO 3.6 (<3.6); POTASSIUM 4.1 mmol/L (3.5-4.5); SODIUM 139 mmol/L (135-145); TOTAL PROTEIN 7.2 g/dL (6.4-8.9); TRIGLYCERIDES 178 mg/dL (48-352); VLDL CHOLESTEROL 36 mg/dL
[2023-10-01 12:31] LABS: THYROID STIMULATING HORMONE 2.33 uIU/mL (0.34-5.60)
== END 2023-10-01 07:47 | disposition home or self-care (01) ==
LOC: LAB.N 07:46
PROVIDERS: ATTEND Internal Medicine
DX: Z00.00 Encounter for general adult medical examination without abnormal findings (principal); R05.1 Acute cough; D64.9 Anemia, unspecified; J40 Bronchitis, not specified as acute or chronic; I12.9 Hypertensive chronic kidney disease with stage 1 through stage 4 chronic kidney disease, or unspecified chronic kidney disease; N18.9 Chronic kidney disease, unspecified; R73.01 Impaired fasting glucose; G62.9 Polyneuropathy, unspecified; C61 Malignant neoplasm of prostate; J30.2 Other seasonal allergic rhinitis; J32.9 Chronic sinusitis, unspecified
CPT/HCPCS: 36415; 80053; 80061; 82607; 83036; 83721; 84443; 85025

== ENCOUNTER 2024-01-08 09:42 | Outpatient (CLI) | payer MEDICARE, OTHER ==
[2024-01-08] MEDS ORDERED: iohexoL-300 100 ML VIAL ONE (09:52)
[2024-01-08 10:37] LABS: CREATININE 1.2 mg/dL (0.6-1.3)
[2024-01-08] MEDS: iohexoL-300 100 ML VIAL IVP ONE (11:02)
--- NOTE | 2024-01-08 16:22 | CT Report ---
PROCEDURE: Chest W INDICATIONS: CHEST WALL PAIN CONTRAST: IOHEX 300 100ML TECHNIQUE: After the administration of intravenous contrast, a CT scan of the chest was performed. Images were recorded and evaluated at appropriate window settings. Reformats: axial MIP of the chest, coronal and sagittal. For radiation dose reduction, the following was used: automated exposure control, adjustme nt of mA and/or kV according to patient size. COMPARISON: CT chest on August 13, 2022. FINDINGS: Image quality: Diagnostic. Chest wall and lower neck: No thyroid nodule which requires sonographic follow up. No axillary or sup raclavicular adenopathy by size. Lungs and pleura: No consolidation. Patent central airways. No pleural effusions. No pneumothorax. C ompared to CT chest dated August 13, 2022, no new or enlarging solid pulmonary nodules or consolidat ion. Multiple scattered solid pulmonary nodules measuring up to 6 mm are stable. For example: -Right major fissure, measures 5 mm (4/50), previously 5 mm -Right lower lobe, measures 6 mm (4/56), previously 6 mm. -Left lower lobe subpleural, measures 4 mm (4/66), previously 4 mm Mediastinum: Heart size is normal. No pericardial effusion. No large vessel abnormality. No mediastin al adenopathy by size criteria. Marked LAD and mild right coronary and left circumflex vessel calcif ications. Bones: No aggressive osseous abnormality. No acute fractures. Exaggerated thoracic kyphosis secondary to multilevel anterior wedging, notably T9. Moderate to severe multilevel degenerative changes, nota nicholas at T12-L1. Upper Abdomen: Mild calcification of the abdominal aorta. Partially visualized colonic diverticulosis . IMPRESSION: 1.Compared to CT chest dated August 13, 2022, no new or enlarging solid pulmonary nodules. A few sca ttered solid pulmonary nodules measuring up to 6 mm are stable since July 2022 which are considere d benign in the absence of a ligament see history. 2.Marked LAD and mild right coronary and left circumflex vessel calcifications. Reviewed by: Colt Luna MD on 01/08/2024 4:21 PM PDT Approved by: Colt Luna MD on 01/08/2024 4:21 PM PDT Station ID: [id number]
== END 2024-01-08 09:43 | disposition home or self-care (01) ==
LOC: LAB 09:42
PROVIDERS: ATTEND Internal Medicine
DX: R07.89 Other chest pain (principal); Z79.899 Other long term (current) drug therapy; R91.8 Other nonspecific abnormal finding of lung field; I25.10 Atherosclerotic heart disease of native coronary artery without angina pectoris
CPT/HCPCS: 36415; 71260; 82565; Q9967

== ENCOUNTER 2024-07-20 15:45 | Outpatient (CLI) | payer MEDICARE, OTHER ==
[2024-07-20 21:15] LABS: CALCIUM 9.2 mg/dL (8.5-10.3); CREATININE 1.3 mg/dL (0.6-1.3); POTASSIUM 4.2 mmol/L (3.5-4.5)
== END 2024-07-20 16:00 | disposition home or self-care (01) ==
LOC: LAB.N 15:45
PROVIDERS: ATTEND Physician Assistant Medical
DX: J40 Bronchitis, not specified as acute or chronic (principal)
CPT/HCPCS: 36415; 80048